=== PATIENT | male | born 1960 | race Caucasian/White ===

== ENCOUNTER → 2022-01-02 | Outpatient (CLI) | payer MEDICARE, OTHER ==
[~2022-01-02] MED LIST: IBUPROFEN 600 MG (MOTRIN) TAB PO ONE; REGADENOSON 0.4 MG/5 ML SYR (LEXISCAN) IV ONE
[2022-01-02] MEDS: CATHETER FLUSH 10 ML SYR IVP PRN ×2 (11:33→13:00)
[2022-01-02 13:03] VITALS: BP 157/79
--- NOTE | 2022-01-02 15:24 | Cardiology Stress Test Report ---
Stress Test Report Date of Procedure/Referring: Date of Procedure: Jan 02, 2022 PCP Admitting Physician Admitting Physician: Attending Physician: Maximilian Nieves DO Indications: HTN Baseline Heart Rate: 68 Baseline Blood Pressure: Blood Pressure Systolic: 157 Blood Pressure Diastolic: 79 Baseline Vitals Vital Signs Date Time Temp Pulse Resp B/P (MAP) Pulse Ox O2 Delivery O2 Flow Rate FiO2 01/02/22 13:03 74 157/79 (105) Baseline EKG: Baseline EKG: NSR Summary After explaining the procedure to the patient, he signed a consent and then brought to the stress nuclear laboratory. Patient received 0.4 mg Lexiscan for stress test, ECG, heart rate and blood pressure were monitored continuously. Resting and stress dose of radio tracer were injected, imaging was acquired and reviewed in short axis, horizontal long axis and vertical long axis views. TID: 1.11 SSS: 1 SDS: 1 EF: 49 1. Patient tolerated Lexiscan well 2. No significant ischemia or infarction on SPECT images 3. Normal left ventricular size, ejection fraction 49% PURA MARCH MD Jan 02, 2022 15:24
== END ==
LOC: CARD 11:45
PROVIDERS: ATTEND Pediatrics
DX: I25.118 Atherosclerotic heart disease of native coronary artery with other forms of angina pectoris (principal); I10 Essential (primary) hypertension
CPT/HCPCS: 78452; 93017; A9502

== ENCOUNTER → 2023-03-07 | Outpatient (CLI) | payer MEDICARE | LOC: CARD 09:31 | PROVIDERS: ATTEND Pediatrics | DX: I35.1 Nonrheumatic aortic (valve) insufficiency (principal); I50.20 Unspecified systolic (congestive) heart failure | CPT/HCPCS: 93306 ==